=== PATIENT | male | born 1980 | race Caucasian/White ===

== ENCOUNTER 2016-10-25 20:42 | Inpatient (IN) | payer OTHER ==
[~2016-10-25] VITALS: Ht 188 cm; Wt 86.2 kg
[2016-10-25 20:57] VITALS: BP_SYST 164
[2016-10-25] MEDS ORDERED: KETOROLAC TROMETHAMINE 30 MG VIAL IVP ONE (21:45)
[2016-10-25] MEDS ORDERED: CEFAZOLIN 1 GM IVPB PREMIX 50 ML IV ONE (21:45)
[2016-10-25 22:13] LABS: BASOPHILS # (AUTO) 0.1 K/uL (0.0-0.2); BASOPHILS % (AUTO) 1.2 % (0.0-2.0); EOSINOPHILS # (AUTO) 0.3 K/uL (0.0-0.4); EOSINOPHILS % (AUTO) 2.6 % (0.0-4.0); HEMATOCRIT 38.7 % (36-54); HEMOGLOBIN 12.3 g/dL (14.0-18.0); LYMPHOCYTES # (AUTO) 1.6 K/uL (1.0-5.5); LYMPHOCYTES % (AUTO) 14.7 % (20.5-51.5); MEAN CORPUSCULAR HEMOGLOBIN 20 pg (27-31); MEAN CORPUSCULAR HGB CONC 32 % (32-36); MEAN CORPUSCULAR VOLUME 64 fL (79.0-98.0); MONOCYTES # (AUTO) 0.7 K/uL (0.0-1.0); MONOCYTES % (AUTO) 6.2 % (1.7-9.3); NEUTROPHILS % (AUTO) 75.3 % (40.0-70.0); PLATELET COUNT (AUTO) 127 K/uL (130-430); RED BLOOD CELL COUNT(AUTO) 6.05 MIL/uL (4.2-6.2); RED CELL DISTRIBUTION WIDTH 14.6 % (9.0-15.0); WHITE BLOOD COUNT (AUTO) 10.7 K/uL (4.8-10.8)
[2016-10-25 22:24] LABS: CALCIUM 8.3 mg/dL (8.4-11.0); CREATININE 1.39 mg/dL (0.55-1.30); POTASSIUM 3.7 mmol/L (3.5-5.1)
[2016-10-25 22:29] LABS: ALBUMIN 4.1 g/dL (3.4-4.8); TOTAL BILIRUBIN 0.8 mg/dL (0.0-1.0); TOTAL PROTEIN, SERUM 6.9 g/dL (6.4-8.3)
[2016-10-25] MEDS ORDERED: MORPHINE 4 MG/ML INJ. SYRINGE IVP ONE (22:30)
[2016-10-25] MEDS ORDERED: cefTRIAXone 1 GM in D5W 50 ML IV ONE (22:30)
[2016-10-25] MEDS ORDERED: ONDANSETRON HCL 4 MG/2 ML VIAL IVP ONE (22:30)
[2016-10-25] MEDS ORDERED: cefTRIAXone 1 GM VIAL ONE (22:43)
[2016-10-25] MEDS: DIPH-TET-PERTUS Vaccine 0.5 ML VIAL (ADACEL) I.M. ONE ×2 (22:43→22:48)
[2016-10-25] MEDS ORDERED: HYDROcodone/ACETAMIN 5-325 MG TAB (NORCO/ VICODIN) PO PRN (23:15)
[2016-10-25] MEDS ORDERED: ACETAMINOPHEN 325 MG TABLET PO PRN (23:15)
[2016-10-25] MEDS ORDERED: HYDROcodone/ACETAMIN 10-325 MG TAB PO PRN (23:15)
[2016-10-25] MEDS ORDERED: cloNIDine HCL 0.1 MG TABLET PO PRN (23:15)
[2016-10-25] MEDS ORDERED: ONDANSETRON HCL 4 MG/2 ML VIAL IVP PRN (23:15)
[2016-10-25] MEDS ORDERED: cloNIDine HCL 0.1 MG TABLET ONE (23:23)
[2016-10-26] MEDS ORDERED: CARVEDILOL 6.25 MG TABLET (COREG) PO ONE (00:15)
[2016-10-26] MEDS ORDERED: cloNIDine HCL 0.1 MG TABLET PO PRN (00:15)
[2016-10-26] MEDS ORDERED: CARVEDILOL 6.25 MG TABLET (COREG) ONE (00:23)
[2016-10-26 01:08] VITALS: BP_SYST 158
[2016-10-26 01:11] VITALS: BP_SYST 158
[2016-10-26] MEDS ORDERED: CLINDAMYCIN 600 mg/50mL D5W 100 ML IV ONE (01:26)
[2016-10-26] MEDS ORDERED: CEFAZOLIN 1 GM IVPB PREMIX 50 ML IV ONE (01:26)
[2016-10-26] MEDS: CLINDAMYCIN 600 mg/50mL D5W 50 ML IV SCH ×2 (01:34→05:24)
[2016-10-26] MEDS ORDERED: CEFAZOLIN 1 GM IVPB PREMIX 50 ML IV SCH (06:00)
[2016-10-26 08:18] VITALS: BP_SYST 157
[2016-10-26] MEDS ORDERED: CARVEDILOL 12.5 MG TABLET (COREG) PO SCH (09:00)
== END 2016-10-26 09:30 | disposition left against medical advice (07) | DRG 603 ==
LOC: SED 20:42 → SMU 23:04
PROVIDERS: ADMIT Internal Medicine; ATTEND Internal Medicine
DX: L03.114 Cellulitis of left upper limb (principal); Z53.21 Procedure and treatment not carried out due to patient leaving prior to being seen by health care provider; I10 Essential (primary) hypertension
CPT/HCPCS: 36415; 80053; 83605; 85025; 87040-TC; 90715; 96365; 96367; 96375; 99285; J0690; J0696; J1885; J2270; J2405; J3490; J7050

== ENCOUNTER 2016-10-27 02:50 | Emergency (ER) | payer SELFPAY ==
[~2016-10-27] VITALS: Ht 182.9 cm; Wt 86.2 kg
[2016-10-27 03:00] VITALS: BP_SYST 163
--- NOTE | 2016-10-27 03:29 | NUR ---
Pt complain of left hand swellen. Warm to touch, redness, swollen noted. Pain level of 5/10. Denied SOB at the time. will continue to monitor
--- NOTE | 2016-10-27 03:39 | NUR ---
ER Dr. Jacinto at bedside examining patient.
[2016-10-27] MEDS ORDERED: NACL 0.9% 1,000 ML IV ONE (03:40)
[2016-10-27] MEDS ORDERED: ceFAZolin SODIUM 2 GM in D5W 100 ML IV ONE (03:45)
[2016-10-27] MEDS ORDERED: KETOROLAC TROMETHAMINE 30 MG VIAL IVP ONE (03:45)
[2016-10-27] MEDS ORDERED: ceFAZolin SODIUM 1 GM VIAL ONE (04:22)
[2016-10-27 04:23] LABS: CALCIUM 8.5 mg/dL (8.4-11.0); CREATININE 1.23 mg/dL (0.55-1.30); POTASSIUM 3.6 mmol/L (3.5-5.1)
[2016-10-27 04:28] LABS: TOTAL BILIRUBIN 0.9 mg/dL (0.0-1.0); TOTAL PROTEIN, SERUM 6.8 g/dL (6.4-8.3)
[2016-10-27 04:39] LABS: BASOPHILS % (AUTO) 0.4 % (0.0-2.0); EOSINOPHILS # (AUTO) 0.2 K/uL (0.0-0.4); EOSINOPHILS % (AUTO) 1.7 % (0.0-4.0); HEMATOCRIT 36.1 % (36-54); HEMOGLOBIN 11.5 g/dL (14.0-18.0); LYMPHOCYTES # (AUTO) 1.4 K/uL (1.0-5.5); LYMPHOCYTES % (AUTO) 13.4 % (20.5-51.5); MEAN CORPUSCULAR HEMOGLOBIN 20 pg (27-31); MEAN CORPUSCULAR HGB CONC 32 % (32-36); MEAN CORPUSCULAR VOLUME 64 fL (79.0-98.0); MONOCYTES # (AUTO) 0.7 K/uL (0.0-1.0); MONOCYTES % (AUTO) 6.3 % (1.7-9.3); NEUTROPHILS # (AUTO) 8.2 K/uL (1.8-7.7); NEUTROPHILS % (AUTO) 78.2 % (40.0-70.0); PLATELET COUNT (AUTO) 117 K/uL (130-430); RED BLOOD CELL COUNT(AUTO) 5.67 MIL/uL (4.2-6.2); RED CELL DISTRIBUTION WIDTH 14.7 % (9.0-15.0); WHITE BLOOD COUNT (AUTO) 10.5 K/uL (4.8-10.8)
--- NOTE | 2016-10-27 06:12 | NUR ---
Patient given written and verbal discharge instructions and verbalizes understanding. ER MD discussed with patient the results and treatment provided. Given copies of tests performed in ER. Patient in stable condition. ID arm band removed. IV catheter removed intact and dressing applied, no active bleeding. Rx of Keflex 500mg one cap four times a day given. Patient educated on pain management and to follow up with PMD. Pain Scale 0/10. Opportunity for questions provided and answered.
== END 2016-10-27 06:12 | disposition home or self-care (01) ==
LOC: SED 02:50
DX: L03.119 Cellulitis of unspecified part of limb (principal); I10 Essential (primary) hypertension
CPT/HCPCS: 36415; 80053; 85025; 87040; 96365; 96375; 99284; J0690; J1885; J7030; J7060

== ENCOUNTER 2019-07-13 14:10 | Emergency (ER) | payer SELFPAY ==
[~2019-07-13] VITALS: Ht 182.9 cm; Wt 81.6 kg
[2019-07-13 14:21] VITALS: BP_SYST 203
--- NOTE | 2019-07-13 17:00 | NUR ---
Called pt x 1 , no answer
--- NOTE | 2019-07-13 17:05 | NUR ---
Called pt x 2 , no answer
--- NOTE | 2019-07-13 17:06 | NUR ---
Patient left without being seen.
== END 2019-07-13 17:00 | disposition left against medical advice (07) ==
LOC: SED 14:10
DX: R05 Cough (principal); Z53.21 Procedure and treatment not carried out due to patient leaving prior to being seen by health care provider

== ENCOUNTER 2019-07-21 11:39 | Inpatient (IN) | payer OTHER ==
[~2019-07-21] VITALS: Ht 182.9 cm; Wt 81.6 kg
[2019-07-21 12:42] VITALS: BP_SYST 155
[2019-07-21 12:55] VITALS: BP_SYST 213
--- NOTE | 2019-07-21 13:10 | NUR ---
Patient to ER bed 3 to gown for evaluation. Side rails up.
--- NOTE | 2019-07-21 13:15 | NUR ---
PT CAME TO ER C/O PRODUCTIVE COUGH AND HTN. PT RESTING ON OIL BURNER, PT TACHYPNEIC AT THIS TIME NO PAIN
--- NOTE | 2019-07-21 13:25 | NUR ---
ER at bedside examining patient.
[2019-07-21] MEDS ORDERED: KETOROLAC TROMETHAMINE 60 MG/2 ML VIAL IM ONE (13:30)
[2019-07-21] MEDS ORDERED: cloNIDine HCL 0.1 MG TABLET PO ONE (13:30)
[2019-07-21 13:47] LABS: BASOPHILS % (AUTO) 1.6 % (0.0-2.0); EOSINOPHILS % (AUTO) 1.2 % (0.0-4.0); HEMATOCRIT 35.7 % (36-54); HEMOGLOBIN 11.3 g/dL (14.0-18.0); LYMPHOCYTES # (AUTO) 0.2 K/uL (1.0-5.5); LYMPHOCYTES % (AUTO) 5.4 % (20.5-51.5); MEAN CORPUSCULAR HEMOGLOBIN 20 pg (27-31); MEAN CORPUSCULAR HGB CONC 32 % (32-36); MEAN CORPUSCULAR VOLUME 64 fL (79.0-98.0); MONOCYTES # (AUTO) 0.5 K/uL (0.0-1.0); MONOCYTES % (AUTO) 15.5 % (1.7-9.3); NEUTROPHILS # (AUTO) 2.3 K/uL (1.8-7.7); NEUTROPHILS % (AUTO) 76.3 % (40.0-70.0); PLATELET COUNT (AUTO) 81 K/uL (130-430); RED BLOOD CELL COUNT(AUTO) 5.55 MIL/uL (4.2-6.2); RED CELL DISTRIBUTION WIDTH 16.3 % (9.0-15.0)
[2019-07-21 14:08] LABS: CALCIUM 8.9 mg/dL (8.4-11.0); CREATININE 3.26 mg/dL (0.55-1.30); POTASSIUM 3.1 mmol/L (3.5-5.1)
--- NOTE | 2019-07-21 14:10 | NUR ---
# 20 gauge angiocath placed to LAC. Use of asceptic technique. Opsite placed over site. Blood return noted. Blood for lab drawn from site. Flushed with 10 cc of normal saline. No evidence of infiltration noted. Patient tolerated well.
[2019-07-21 14:13] LABS: ALBUMIN 3.9 g/dL (3.4-4.8)
[2019-07-21 14:19] LABS: BILIRUBIN,URINE NEGATIVE (NEGATIVE); BLOOD, URINE 1+ (NEGATIVE); CLARITY/URINE CLEAR (CLEAR); COLOR,URINE YELLOW (YELLOW); GLUCOSE,URINE NEGATIVE (NEGATIVE); KETONES,URINE NEGATIVE (NEGATIVE); LEUKOCYTE ESTERASE ,URINE TRACE (NEGATIVE); NITRITE, URINE NEGATIVE (NEGATIVE); PROTEIN URINE 3+ (NEGATIVE); UROBILINOGEN,URINE 0.2 (0.2-1.0)
[2019-07-21 14:28] LABS: BARBITURATE, URINE NEGATIVE (NEG <=200); BENZODIAZEPINE, URINE NEGATIVE (NEG <=150); CANNABINOID, URINE NEGATIVE (NEG <=50); COCAINE, URINE NEGATIVE (NEG <=150); METHAMPHETAMINES SCREEN,URINE POSITIVE (NEG <=500); OPIATE, URINE NEGATIVE (NEG <=100); PHENCYCLIDINE SCREEN,URINE NEGATIVE (NEG <=25); UR TRICYCLIC ANTIDEPRESSANTS NEGATIVE (NEG <=300); URINE AMPHETAMINE POSITIVE (NEG <=500); URINE METHADONE NEGATIVE (NEG <=200); URINE OXYCODONE SCREEN NEGATIVE (NEG <=100); URINE PROPOXYPHENE SCREEN NEGATIVE (NEG <=300)
[2019-07-21 14:36] LABS: BACTERIA,URINE RARE /HPF (None Seen)
[2019-07-21] MEDS ORDERED: NACL 0.9% 1,000 ML IV ONE (15:15)
[2019-07-21] MEDS ORDERED: POTASSIUM CHLORIDE 20 MEQ TAB.PRT.SR PO ONE (15:15)
[2019-07-21] MEDS ORDERED: ASPIRIN 325 MG TABLET PO ONE (15:15)
--- NOTE | 2019-07-21 15:15 | NUR ---
pt will be admitted under the care of Dr. Medeiros. Orders received
[2019-07-21] MEDS ORDERED: ASPIRIN 325 MG TABLET (ECOTRIN) PO ONE (15:19)
--- NOTE | 2019-07-21 15:20 | NUR ---
Called for tele bed. Spoke w/ Beatrice BARNHART.
--- NOTE | 2019-07-21 15:23 | NUR ---
Currently infusing NS 1liter per MD order.
[2019-07-21] MEDS ORDERED: LOSA50TA3 PO (15:24)
--- NOTE | 2019-07-21 15:24 | NUR ---
Medication reconciliation completed with information provided by pt. Any prior medication reconciliation on file was reviewed and corrected.
--- NOTE | 2019-07-21 16:30 | NUR ---
pt is currently sleeping in bed. No c/o at the moment
--- NOTE | 2019-07-21 17:00 | NUR ---
Still waiting for a tele bed.
--- NOTE | 2019-07-21 17:35 | NUR ---
Admission Note Received patient from ER with diagnosis of chest pain. Initial Plan of Care discussed-patient verbalized understanding. mother at bedside. Oriented to room, call light, pain management and safety.
--- NOTE | 2019-07-21 17:52 | NUR ---
CONSULTATION PAGED REASON FOR CONSULTATION:ELEVATED BUN AND CREATININE WAS CONSULT CALLED?Y PERSON WHO WAS NOTIFIED:[place] CONSULTING PHYSICIAN:TRACY ROSARIO SCIENTIFIC AFFAIRS MANAGER SPECIALTY:NEPHRO SCIENTIFIC AFFAIRS MANAGER PHONE NUMBER:[phone] REQUESTING PHYSICIAN:ANDREW COLEMAN
--- NOTE | 2019-07-21 17:55 | NUR ---
EXECUTIVE WELLNESS PROGRAMS DIRECTOR NOTES RECEIVED PATIENT FROM ER , ALERT X 4 NO PAIN A THIS TIEM . PATIENT ON NPO WANTS TO EAT , WILL PAGE MD FOR THE DIET, PATIENT ADVISED REST AND SAFETY ENSURED , HL TO RT AC ,EXPLAINED PLAN OF CARE
[2019-07-21] MEDS ORDERED: *HEPARIN PER PHARMACY XX ONE (18:00)
[2019-07-21] MEDS ORDERED: cloNIDine HCL 0.1 MG TABLET PO PRN (18:00)
--- NOTE | 2019-07-21 18:04 | NUR ---
PAGED PAGED ANDREW COLEMAN AT [phone] SPOKE WITH AMARI.
--- NOTE | 2019-07-21 18:06 | NUR ---
CONSULTATION PAGED REASON FOR CONSULTATION:CHEST PAIN WAS CONSULT CALLED?Y PERSON WHO WAS NOTIFIED:PENELOPE CONSULTING PHYSICIAN:ROSENDO SCOTT (SUN [employer] HYDROELECTRIC COMPONENT MACHINIST) CRUSHER MACHINE OPERATOR SPECIALTY:CARDIO CRUSHER MACHINE OPERATOR PHONE NUMBER:[phone] REQUESTING PHYSICIAN:ANDREW COLEMAN
[2019-07-21 18:27] VITALS: BP_SYST 162
--- NOTE | 2019-07-21 18:53 | NUR ---
ENDORSEMENT WILL CONT CARE 'PATIENT PLACED ON TELE MONITOR, PATIENT SEEN BY DR MATHEWS ORDERS NOTED HAD DINNER
[2019-07-21] MEDS ORDERED: hydrALAZINE HCL 25 MG TABLET PO ONE (19:00)
--- NOTE | 2019-07-21 19:10 | NUR ---
OPENING NOTES Receive report from morning shift RN. Patient AOx4. Patient is lying in bed with friend at bedside. No signs of respiratory distress and discomfort noted. IV site, patency noted. Call light within, patient was educated to use call light when assistance is needed, patient verbalized understanding. Bed alarm on. Safety precautions in place. Will continue to monitor patient
[2019-07-21 19:28] LABS: INR 1.1 (0.80-1.20); PROTHROMBIN TIME 11.1 SECS (9.5-12.5)
[2019-07-21] MEDS ORDERED: HEPARIN SODIUM,PORCINE 5000 UNITS/ML VIAL IVP ONE (19:45)
[2019-07-21 20:00] VITALS: BP_SYST 156
[2019-07-21] MEDS ORDERED: HEPARIN SODIUM,PORCINE 3000 UNITS/0.6 ML BOLUS IVP PRN (21:00)
[2019-07-21] MEDS ORDERED: HEPARIN SODIUM,PORCINE 2000 UNITS/0.4 ML BOLUS IVP PRN (21:00)
[2019-07-21] MEDS: HEPARIN 25,000 UNITS in 250 ML PREMIX IV PRN (21:07)
--- NOTE | 2019-07-21 21:10 | NUR ---
MED PASS/ STARTED HEPARIN DRIP Due medication given at this time, patient tolerated well. Started Heparin drip with charge nurse OBEY Mcdaniel. No signs of respiratory distress noted. Denies pain and discomfort at this time. Will continue to monitor.
[2019-07-22] VITALS: BP_SYST 180
[2019-07-22] MEDS: hydrALAZINE HCL 20 MG/ML VIAL IVP PRN ×3 (00:03→18:38)
--- NOTE | 2019-07-22 00:03 | NUR ---
APRESOLINE IVP Vital signs taken at this time, patients BP 180/115. PRN Apresoline 0.5ml IVP was given per ordered. Patient has no signs of respiratory distress noted. Denies pain and discomfort at this time. Will continue to monitor patient.
--- NOTE | 2019-07-22 02:49 | NUR ---
RN ROUNDS Patient asleep at this time. No signs of respiratory distress and discomfort noted. Breathing even and unlabored. Heparin drip infusing well, patency noted. Safety precautions in place. Bed alarm on. Will continue to monitor patient.
--- NOTE | 2019-07-22 04:15 | NUR ---
RN ROUNDS Patient asleep at this time. No signs of respiratory distress and discomfort noted. Breathing even and unlabored. Safety precautions in place. Bed alarm on. Will continue to monitor patient.
--- NOTE | 2019-07-22 05:31 | NUR ---
INCREASE BP Vital signs taken BP 198/125, HR 89 O2 sat of 99. Charge Nurse OBEY Mcdaniel made aware. PRN Apresoline IVP 0.5ml was given. No signs of respiratory distress and discomfort noted. Denies pain and discomfort at this time. Safety precautions in place. Will continue to monitor
[2019-07-22] MEDS ORDERED: hydrALAZINE HCL 25 MG TABLET PO SCH (06:00)
[2019-07-22] MEDS: HEPARIN 25,000 UNITS in 250 ML PREMIX IV PRN (06:08)
--- NOTE | 2019-07-22 06:45 | NUR ---
CLOSING NOTES Patient went back to sleep, no signs if respiratory distress and discomfort noted. Breathing even and unlabored. Heparin Drip infusing well, patency noted. Call light within reach. Safety precautions in place. All needs met throughout the shift will continue to monitor until endorse to oncoming shift nurse for continuity of care Addendum: 07/22/19 at 0728 by Clarissa Freeman RN Endorsed to OBEY Ridley. to continue Heparin Drip protocol and to continue monitor Blood pressure
[2019-07-22 08:00] VITALS: BP_SYST 200
--- NOTE | 2019-07-22 08:00 | NUR ---
initial notes rec patient asleep but arousable to stimuli. iv heparin infusing well and mamadou well. observed for bleeding. c/o headache resp easy and unlabored. no osb noted. bed to the lowest position. call light within reached and knows what to for pain.
[2019-07-22] MEDS: PANTOPRAZOLE SODIUM 40 MG TAB PO SCH (08:48)
[2019-07-22] MEDS: ASPIRIN 325 MG TABLET (ECOTRIN) PO SCH ×2 (08:49→09:00)
[2019-07-22 09:12] LABS: CALCIUM 8.4 mg/dL (8.4-11.0); CREATININE 3.27 mg/dL (0.55-1.30); POTASSIUM 3.4 mmol/L (3.5-5.1)
[2019-07-22 09:27] LABS: ALBUMIN 3.5 g/dL (3.4-4.8); THYROID STIMULATING HORMONE 0.56 uIu/mL (0.36-3.74); TOTAL BILIRUBIN 1.7 mg/dL (0.0-1.0)
--- NOTE | 2019-07-22 10:00 | NUR ---
rounds seen by dr villeda and dr damian at bedside.
[2019-07-22] MEDS ORDERED: CARVEDILOL 12.5 MG TABLET (COREG) PO ONE (11:00)
--- NOTE | 2019-07-22 11:09 | NUR ---
SS NOTES: CASKET LINER was referred by nursing for homelessness, self-pay and DCP. Demographic information confirmed. CASKET LINER met with patient and mother at bedside; ok'd by patient. Pt was alert and oriented and cooperative. Pt appeared to be disheveled, with irritable mood (pt stated due to his headache and was also irritable towards mother), toss and turning with normal speech and average eye contact. Pt is a 39 y/o single male who came in via ED for chest pain and cough. Pt moved to [place] from [place] about 2-3 months ago and has been staying in between his mother's and his brother's home for the time being. Pt stated he does not have a permanent residence and considers himself homeless. Pt states he does not have a place of his own, due to "expensive rent". 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 Pt is independent with all his ADL's and does not own any DME. Pt denies history or current mental health but states he "does meth", but does not believe in treatments or rehabs. Pt states when living in [place], he had health insurance and was able to get his medication for hypertension of Losartan. Pt states he just recently ran out of meds and gets his Losartan from his brother. Pt states last Sunday, he applied for his [employer] and is still waiting for his card (Stacia Caraballo of admitting notified). Pt does not have other source of income. Pt has weather appropriate clothing, and can provide for own transport when discharged. If SNF is indicated, pt would like to use [facility], and for [facility], he does not have a preference. If discharge to home, pt will be staying with his brother's home in [place] temporarily. Pt was thankful after the interaction and CASKET LINER encouraged pt to call if winter senior living is needed and for additional resources. CASKET LINER provided pt with winter shelters (pt refused), homeless assistance packet, community clinics and medication discount card. No further SS needs identified, but will remain available when needed.
--- NOTE | 2019-07-22 12:00 | NUR ---
rounds call light within reached. sleeps at intervals. brought food for patiernt.
[2019-07-22 12:35] VITALS: BP_SYST 184
[2019-07-22] MEDS: hydrALAZINE HCL 25 MG TABLET PO SCH ×2 (13:44→22:20)
--- NOTE | 2019-07-22 14:00 | NUR ---
rounds asleep when rounds made.call light withn reached.
[2019-07-22] MEDS: guaiFENesin/DEXTROMETHORPHAN 10 ML UDC PO PRN ×2 (14:10→21:07)
[2019-07-22] MEDS: ACETAMINOPHEN 325 MG TABLET PO PRN (14:12)
--- NOTE | 2019-07-22 16:00 | NUR ---
rounds sleeps at intervals , denies pain. call light within reached.
[2019-07-22 16:45] VITALS: BP_SYST 159
--- NOTE | 2019-07-22 18:50 | NUR ---
closing notes pt resting comfortably at this time. was medicated with apresoline ivp. will endorse to night nurse jose manuel. re bp. stable and needs attended.
--- NOTE | 2019-07-22 19:10 | NUR ---
OPENING NOTES Receive report from morning shift RN. Patient AOx4, sitting in bed family at bedside. No signs of respiratory distress and discomfort noted. Coughing is noted, verbalized need cough medicine before bed time. IV site, patency noted. Call light within, patient was educated to use call light when assistance is needed, patient verbalized understanding. Bed alarm on. Bed locked and in lowest position. Safety precautions in place. Will continue to monitor patient
[2019-07-22 20:00] VITALS: BP_SYST 189
[2019-07-22] MEDS: CARVEDILOL 12.5 MG TABLET (COREG) PO SCH (21:08)
--- NOTE | 2019-07-22 21:08 | NUR ---
MED PASS Due medication given at this time. Patient tolerated well. No signs of respiratory distress and discomfort noted. Breathing even and unlabored. Safety precautions in place. Will continue to monitor patient.
--- NOTE | 2019-07-22 22:08 | NUR ---
CRITICAL LAB RECEIVED CRITICAL LAB RESULT TROPONIN 0.281. ENDORSE TO PRIMARY CARE RN.
--- NOTE | 2019-07-22 22:48 | NUR ---
PAGED I PAGED DR. GAMBOA @ [phone] DR. GAMBOA CALLED BACK @ [phone]
--- NOTE | 2019-07-22 22:53 | NUR ---
SPOKE WITH DR. COOPER CASTILLO made aware of patients critical lab value of troponin 0.281. No new order was given.
[2019-07-23 00:30] VITALS: BP_SYST 191
[2019-07-23] MEDS: hydrALAZINE HCL 20 MG/ML VIAL IVP PRN ×2 (00:47→10:07)
--- NOTE | 2019-07-23 00:47 | NUR ---
INCREASE BP PRN Apresoline 0.5ml via IVP was given at this time. No signs of respiratory distress and discomfort noted. Breathing even and unlabored. Safety precautions in place. Will continue to monitor patient.
--- NOTE | 2019-07-23 02:42 | NUR ---
CRITICAL LAB Troponin of 0.359. Will inform
--- NOTE | 2019-07-23 02:59 | NUR ---
SPOKE WITH DR. COOPER CASTILLO made aware of critical lab value. No new order at this time.
--- NOTE | 2019-07-23 03:00 | NUR ---
RN ROUNDS Patient asleep at this time. No signs of respiratory distress and discomfort noted. Breathing even and unlabored. Safety precautions in place. Will continue to monitor
[2019-07-23] MEDS: ACETAMINOPHEN 325 MG TABLET PO PRN ×2 (04:34→10:58)
[2019-07-23] MEDS: hydrALAZINE HCL 25 MG TABLET PO SCH ×2 (05:30→13:52)
--- NOTE | 2019-07-23 06:56 | NUR ---
CLOSING NOTES BP 190/119 HR 80. Due medication Apresoline 50mg was given PO. Patient went back sleep. No signs of respiratory distress and discomfort noted. Denies pain and discomfort at this time. Breathing even and unlabored. Call light within reach. Bed locked and lowest position. Safety precautions in place. All needs met throughout the shift. Will continue to monitor until endorse to oncoming shift nurse. Addendum: 07/23/19 at 0718 by Clarissa Freeman RN Endorsed to OBEY Carpenter
--- NOTE | 2019-07-23 07:40 | NUR ---
opening note patient is resting in bed, alert and oriented, educated mason tender restoration labor light system and plan of care, patient verbalized understanding, patient complaining of a headache that comes and goes, no signs of distress at this time, no other needs addressed at this time, brake armed, bed alarm on, two side rails up, call light within reach, fall/safety precautions in place.
[2019-07-23 08:00] VITALS: BP_SYST 159
[2019-07-23] MEDS: CARVEDILOL 12.5 MG TABLET (COREG) PO SCH (08:27)
[2019-07-23] MEDS: PANTOPRAZOLE SODIUM 40 MG TAB PO SCH (08:27)
[2019-07-23] MEDS: ASPIRIN 325 MG TABLET (ECOTRIN) PO SCH (08:31)
--- NOTE | 2019-07-23 10:07 | NUR ---
prn hydralazine educated patient on medication use and side effects, patient verbalized understanding, no other needs addressed at this time, fall/safety precautions in place.
[2019-07-23 10:21] LABS: CALCIUM 8.5 mg/dL (8.4-11.0); CREATININE 2.98 mg/dL (0.55-1.30); POTASSIUM 3.2 mmol/L (3.5-5.1)
[2019-07-23 10:25] LABS: ALBUMIN 3.3 g/dL (3.4-4.8)
[2019-07-23] MEDS ORDERED: POTASSIUM CHLORIDE 20 MEQ TAB.PRT.SR PO ONE (10:30)
[2019-07-23 10:59] VITALS: BP_SYST 160
--- NOTE | 2019-07-23 12:10 | NUR ---
rounds patient still complaining of minor headache, offered him ice packs, patient stated that he felt improvement with it, no other needs addressed at this time, fall/safety precautions in place.
[2019-07-23 13:14] VITALS: BP_SYST 173
--- NOTE | 2019-07-23 14:00 | NUR ---
scheduled hydralazine patient resting in bed, educated on medication use and side effects, patient verbalized understanding, no other needs addressed at this time, fall/safety precautions in place.
[2019-07-23 16:40] VITALS: BP_SYST 152
--- NOTE | 2019-07-23 16:51 | NUR ---
rounds patient resting in bed, eyes closed breathing easy and nonlabored, no signs of distress at this time, no other needs addressed at this time, fall/safety precautions in place.
[2019-07-23] MEDS ORDERED: HYDR-4038 PO (17:28)
[2019-07-23] MEDS ORDERED: COR25 PO (17:28)
[2019-07-23 17:52] VITALS: BP_SYST 152
--- NOTE | 2019-07-23 18:40 | NUR ---
D/C Patient Patient given medication reconciliation form and D/C instructions. Exit Care provided. Patient verbalized understanding. MD discussed with patient the results and treatment provided. Ambulatory with steady gait for discharge to home. Patient in stable condition, ID band removed. IV catheter removed, intact and dressing applied, no active bleeding. Rx of coreg, hydralazine given. Patient educated on pain management. All belongings sent with patient.
[2019-07-23] MEDS ORDERED: CARVEDILOL 25 MG TABLET (COREG) PO SCH (21:00)
== END 2019-07-23 18:40 | disposition home or self-care (01) | DRG 281 ==
LOC: SED 11:39 → STU 14:57
PROVIDERS: ADMIT Internal Medicine Hospice and Palliative Medicine; ATTEND Internal Medicine Hospice and Palliative Medicine
DX: I21.A1 Myocardial infarction type 2 (principal); E87.1 Hypo-osmolality and hyponatremia; I16.1 Hypertensive emergency; N18.4 Chronic kidney disease, stage 4 (severe); N17.9 Acute kidney failure, unspecified; E87.6 Hypokalemia; F15.10 Other stimulant abuse, uncomplicated; F17.210 Nicotine dependence, cigarettes, uncomplicated; I12.9 Hypertensive chronic kidney disease with stage 1 through stage 4 chronic kidney disease, or unspecified chronic kidney disease; I51.7 Cardiomegaly; J20.9 Acute bronchitis, unspecified; D64.9 Anemia, unspecified; Z91.19 Patient's noncompliance with other medical treatment and regimen; Z59.0 Homelessness; Z79.899 Other long term (current) drug therapy
CPT/HCPCS: 36415; 71045; 76770; 80053; 80307; 81000-TC; 83880; 84443-TC; 84484; 85025; 85610-TC; 85730-TC; 93005; 93306; 96372; 99285; G0378; J0360; J1644; J1885